=== PATIENT | male | born 1990 | race Caucasian/White ===

== ENCOUNTER → 2016-06-21 | Outpatient (CLI) | payer MEDICARE, MEDICAID ==
[~2016-06-21] MED LIST: CEFTIN125 MG PO; CEFTIN500 MG PO; DITROPAN5 MG PO; FIBRE1 TAB PO; LEVAQUIN 5500 MG/TA1 PO; NORCO 325 MG-51 TAB PO; OMNICEF 300MG300 MG PO; PRILOSEC 20MG20 MG PO; TOPAMAX 25MG25 M1 PO; VALIUM2 MG PO; VESICARE10 MG PO; [UNRECOGNIZED DRUG - OTHER]
== END ==
LOC: COL.RAD 09:34
DX: N28.1 Cyst of kidney, acquired (principal)

== ENCOUNTER → 2017-01-11 | Outpatient (CLI) | payer MEDICARE, MEDICAID | LOC: MHCPAIN 10:17 | DX: G89.29 Other chronic pain (principal); M47.817 Spondylosis without myelopathy or radiculopathy, lumbosacral region; M47.814 Spondylosis without myelopathy or radiculopathy, thoracic region; M41.9 Scoliosis, unspecified; M79.1 Myalgia | CPT/HCPCS: G0463 ==

== ENCOUNTER → 2017-01-17 | Outpatient (CLI) | payer MEDICARE, MEDICAID | LOC: MHCPAIN 10:01 | DX: M79.1 Myalgia (principal); M41.9 Scoliosis, unspecified; Q05.9 Spina bifida, unspecified; G82.20 Paraplegia, unspecified | CPT/HCPCS: J1040 ==

== ENCOUNTER 2017-01-19 09:49 | Outpatient (RCR) | payer MEDICARE, MEDICAID | END 2017-02-07 10:19 | LOC: MKS.ESL.PT 09:49 | DX: M47.815 Spondylosis without myelopathy or radiculopathy, thoracolumbar region (principal); M41.85 Other forms of scoliosis, thoracolumbar region ==

== ENCOUNTER 2020-01-11 13:00 | Outpatient (RCR) | payer MEDICARE, MEDICAID, BC | END 2020-03-09 | disposition home or self-care (01) | LOC: MKS.ESL.OT | DX: G82.20 Paraplegia, unspecified (principal); Q05.2 Lumbar spina bifida with hydrocephalus ==

== ENCOUNTER → 2020-05-02 | Outpatient (CLI) | payer BC, MEDICAID | LOC: COL.RAD 09:33 | DX: N28.1 Cyst of kidney, acquired (principal); Z87.440 Personal history of urinary (tract) infections ==

== ENCOUNTER → 2020-08-25 | Outpatient (CLI) | payer BC, MEDICARE, MEDICAID | LOC: MHCPAIN 11:05 | DX: M54.6 Pain in thoracic spine (principal); M79.18 Myalgia, other site; M41.86 Other forms of scoliosis, lumbar region | CPT/HCPCS: G0463; J1040 ==

== ENCOUNTER → 2020-12-29 | Outpatient (CLI) | payer BC, MEDICARE, MEDICAID | LOC: MHCPAIN 10:11 | DX: M41.86 Other forms of scoliosis, lumbar region (principal); M79.18 Myalgia, other site; M54.2 Cervicalgia; M54.50 Low back pain, unspecified; M54.6 Pain in thoracic spine | CPT/HCPCS: G0463; J1040 ==

== ENCOUNTER 2023-03-26 20:31 | Emergency (ER) | payer OTHER, MEDICARE, MEDICAID ==
[~2023-03-26] VITALS: Ht 167.6 cm; Wt 113.6 kg
[2023-03-26 20:34] VITALS: TEMP 98.7
[2023-03-26] MEDS ORDERED: BACTRIM DS 8001 TAB PO (21:44)
[2023-03-26] MEDS ORDERED: Sulfamethoxazole/Trimethoprim 800-160 MG TAB PO ONE (21:45)
[2023-03-26] MEDS ORDERED: Doxycycline Monohydrate 100 MG CAP PO ONE (22:30)
[2023-03-26] MEDS ORDERED: DOXYCYCLINE 10100 MG PO (22:35)
[2023-03-26 22:42] VITALS: BP 128/72; PULSE 98
== END 2023-03-26 22:40 | disposition home or self-care (01) ==
LOC: COL.ER 20:31
DX: K65.1 Peritoneal abscess (principal); Z88.1 Allergy status to other antibiotic agents; Z91.040 Latex allergy status